=== PATIENT | female | born 1960 | race Caucasian/White ===

== ENCOUNTER 2016-11-25 10:28 | Emergency (ER) | payer OTHER ==
[~2016-11-25] VITALS: Ht 165.1 cm; Wt 90.9 kg
[~2016-11-25 10:28] MED LIST: ACCOLATE20 MG PO; ADVAIR 250/501 DISK IH; ADVAIR 500/501 DISK IH; ALBUTEROL SULF8.5 GM IH; ALBUTEROL17 GM IH; ALLERGY RELIE15.8 ML BOTH NARES; AMOX TR-K CLV1 EAC3 PO; AMOX TR-K CLV1 EAC4 PO; BENTYL20 MG PO; CALCIUM500 M4 PO; CAPTOPRIL25 MG PO; ELAVIL10 MG PO; FLONASE16 G1 BOTH NARES; INCRUSE ELLI62.5 MCG IH; LIDODERM 5% P1 PATCH TD; LISINOPRIL10 MG PO; LORCET 5-325 M1 EACH PO; NASACORT AQ16.5 GM BOTH NARES; NASACORT AQ16.5 GM NS; NASACORT10.8 ML BOTH NARES; PREDNISONE10 MG PO; PREDNISONE50 MG PO; PRINIVIL10 MG PO; PROAIR HFA8.5 GM IH; PROVENTIL,2.5 MG/3 M IH; RYBIX ODT50 MG PO; SINGULAIR10 MG PO; SPIRIVA1 INHALATI IH; THEO-24300 MG PO; THEO-DUR,THEOC300 MG PO; ULTRAM50 MG PO; VALIUM2 MG PO; VENTOLIN HFA18 GM IH; VITAMIN D-32000 UNI1 PO; VITAMIN D-32000 UNIT PO
[2016-11-25 11:07] LABS: HEMATOCRIT 46.3 % (36.0-46.0); MCH 29.8 PG (29.0-34.0); MCHC 33.3 G/DL (30.0-36.0); MCV 89.6 FL (83-99); MEAN PLAT.VOLUME 9.2 uM^3 (9.5-12.4); PLATELET COUNT 269 K/uL (156-360); RBC DIS.WIDTH-CV 13.4 % (11.8-14.6); RED BLOOD COUNT 5.17 M/uL (3.80-5.20); WHITE BLOOD COUNT 19.2 K/uL (4.1-10.2)
[2016-11-25 11:23] LABS: CHLORIDE 105 mEq/L (99-109); POTASSIUM 3.9 mEq/L (3.7-5.4); SODIUM 142 mEq/L (136-147)
[2016-11-25 11:24] LABS: GLUCOSE 81 mg/dL (70-99)
[2016-11-25 11:26] LABS: ANION GAP 9 MEQ/L (2-14)
[2016-11-25 11:28] LABS: GFR ESTIMATE (CALCULATED) > 59 mL/min/
[2016-11-25 11:29] LABS: UREA NITROGEN (BUN) 16 mg/dL (9-23)
[2016-11-25 11:37] LABS: TROP-I INTERPRETATION NEGATIVE; TROPONIN-I < 0.01 ng/mL (0.0-0.30)
[2016-11-25] MEDS ORDERED: FIORICET,ESG1 TABLET PO (13:26)
[2016-11-25 13:34] VITALS: BP 118/79
== END 2016-11-25 13:36 | disposition home or self-care (01) ==
LOC: EME 10:28
DX: R51 Headache (principal); J34.9 Unspecified disorder of nose and nasal sinuses; R68.84 Jaw pain; J44.9 Chronic obstructive pulmonary disease, unspecified; I10 Essential (primary) hypertension; K21.9 Gastro-esophageal reflux disease without esophagitis
CPT/HCPCS: 70486; 71020; 80048; 84484; 85027; 93005; 99281; 99283